=== PATIENT | male | born 1995 | race Asian ===

== ENCOUNTER 2023-11-26 15:46 | Inpatient (IN) ==
[2023-11-26] MEDS: SODIUM CHLORIDE 0.9% 1,000 ML IV ONE ×2 (16:21→17:54)
[2023-11-26] MEDS: ONDANSETRON INJ 2 MG/ML 2 ML VIAL IV STA (16:22)
[2023-11-26 16:38] LABS: Appearance Urine Clear (Clear); Bacteria Urine Automated None Seen (None Seen); Bilirubin Urine Negative (Negative); Blood Urine Trace (Negative); Color Urine Yellow; Epithelial Cell Urine Auto 0-2 /hpf (0-2); Glucose Urine UA 3+ (Negative); Ketones Urine 4+ (Negative); Leukocyte Esterase Urine Negative (Negative); Nitrite Urine Negative (Negative); Protein Urine 3+ (Negative); RBC Urine Automated 0-2 /hpf (0-2); Specific Gravity Urine 1.041 (1.000-1.030); Urobilinogen Urine Negative (Negative); WBC Urine Automated 0-5 /hpf (0-5); pH Urine 5.5 (4.5-7.5)
[2023-11-26 16:50] LABS: Mean Platelet Volume 9.8 fL (9.4-12.4); Platelet Count 357 K/uL (130-400); White Blood Count 22.55 K/ul (4.8-10.8)
[2023-11-26 17:21] LABS: Adenovirus PCR Not Detected (NotDetected); Bordetella parapertussis PCR Not Detected (NotDetected); Bordetella pertussis PCR Not Detected (NotDetected); Chlamydia pneumoniae PCR Not Detected (NotDetected); Coronavirus 229E PCR Not Detected (NotDetected); Coronavirus CoV-2 (COVID19)PCR Not Detected (NotDetected); Coronavirus HKU1 PCR Not Detected (NotDetected); Coronavirus NL63 PCR Not Detected (NotDetected); Coronavirus OC43PCR Not Detected (NotDetected); Human Metapneumovirus PCR Not Detected (NotDetected); Influenza A PCR Not Detected (NotDetected); Influenza B PCR Not Detected (NotDetected); Mycoplasma pneumoniae PCR Not Detected (NotDetected); Parainfluenza Virus 1 PCR Not Detected (NotDetected); Parainfluenza Virus 2 PCR Not Detected (NotDetected); Parainfluenza Virus 3 PCR Not Detected (NotDetected); Parainfluenza Virus 4 PCR Not Detected (NotDetected); Respiratory Syncytial VirusPCR Not Detected (NotDetected); Rhinovirus/Enterovirus PCR Not Detected (NotDetected)
[2023-11-26 18:04] LABS: Basophils # (auto) 0.06 K/uL (0.00-0.20); Basophils % (auto) 0.3 %; Hemoglobin 16.6 g/dl (14.0-18.0); Immature Granulocytes # (auto) 0.11 K/uL (0.01-0.20); Immature Granulocytes % (auto) 0.5 %; Lymphocytes # (auto) 1.51 K/uL (1.20-3.40); Lymphocytes % (auto) 6.7 %; Mean Corpuscular Hemoglobin 30.1 pg (25.0-34.0); Mean Corpuscular Hgb Conc 36.1 g/dL (32.0-36.0); Mean Corpuscular Volume 83.5 fL (80.0-100.0); Monocytes # (auto) 0.63 K/uL (0.11-0.59); Monocytes % (auto) 2.8 %; Neutrophils # (auto) 20.24 K/uL (1.40-6.50); Neutrophils % (auto) 89.7 %; Polychromasia 1+; RDW Coefficient of Variation 11.8 % (11.5-14.5); RDW Standard Deviation 34.9 fL (36.4-46.3); Red Blood Count 5.87 M/uL (4.70-6.10); Spherocytes 1+; Tear Drop Cells 1+
[2023-11-26] MEDS: PANTOprazole 40 MG in SYRINGE 0 ML IV ONE (18:06)
[2023-11-26 18:25] LABS: Albumin Level 4.9 gm/dl (3.4-5.0); Anion Gap 18 (3-11); Bilirubin,Total 0.7 mg/dl (0.2-1.0); Calcium 10.1 mg/dl (8.6-10.3); Carbon Dioxide 19 mmol/L (21-32); Chloride 101 mmol/L (98-107); Magnesium 1.7 mg/dl (1.7-2.4); Potassium 4.6 mmol/L (3.5-5.1); Sodium 138 mmol/L (136-145)
[2023-11-26 18:31] LABS: BUN Creatinine Ratio 13.3 (10-20); Blood Urea Nitrogen 8 mg/dl (6-23); Creatinine Clr Calc Pharmacy 205.2 ml/min; Est GFR (African American) > 150.0 ml/min; Est GFR (Non-African American) 135.9 ml/min; Glucose 257 mg/dl (70-99(Fasting))
[2023-11-26 18:33] LABS: Prothrombin Time 10.8 Seconds (9.0-12.0)
[2023-11-26 18:50] LABS: Alanine Aminotransferase 42 U/L (7-52); Albumin Globulin Ratio 1.4 (0.9-2); Alkaline Phosphatase 86 U/L (34-104); Aspartate Aminotransferase 27 U/L (13-39); Globulin 3.5 gm/dl (2.5-4.0); Lipase 1917 U/L (11-82); Total Protein 8.4 gm/dl (6.0-8.3)
[2023-11-26] MEDS: OPTIRAY 320 100ml IV ONE (18:53)
--- NOTE | 2023-11-26 18:56 | Emergency Department Note ---
Impression & Plan Abdominal pain, acute, epigastric, Acute pancreatitis, Elevated lipase, Elevated lactic acid level, Leukocytosis ED Provider Note HISTORY OF PRESENT ILLNESS: Patient is a 28-year-old male presenting with epigastric abdominal pain and vomiting. Patient reports that pain started earlier today. He locates the pain to the epigastric region and denies any radiation of the pain. He describes it as a constant, sharp pain. Reports nausea and a few episodes of vomiting throughout the day today. He denies any diarrhea. He has not taken anything for the pain prior to arrival in the emergency department. Denies any fevers. Denies any chest pain or shortness of breath. He denies any history of abdominal surgeries. He denies using any ibuprofen over the last few weeks. Denies any excessive alcohol use. He says that he does not drink alcohol. ROS: as above PHYSICAL EXAM: Constitutional: Patient appears in no acute distress. HENT: Head: Normocephalic and atraumatic. Eyes: EOMI, PERRL Mouth/Throat: Mucous membranes moist. Neck: Trachea midline. Neck supple. Cardiovascular: Tachycardic with regular rhythm. No murmurs, rubs or gallops. Intact distal pulses. Pulmonary/Chest: No respiratory distress. Breath sounds clear and equal bilaterally. No wheezes or rales. Abdominal: Abdomen soft, no rebound or guarding. Epigastric TTP Musculoskeletal: No edema, tenderness or deformity noted. Skin: Warm and dry. No rash, erythema, pallor or cyanosis Psychiatric: Appropriate mood and affect for situation. Neurological: Alert and keenly responsive. CN II-XII grossly intact, moving all extremities equally and fully. MDM: - Vitals signs showed hypertension and tachycardia. - History obtained via patient. History as above. - Chronic conditions affecting care: None - Differential diagnoses include, but are not limited to: ACS; gastritis; pancreatitis; cholecystitis; dehydration; small bowel obstruction; bowel perforation - Order placed for continuous cardiac monitoring. At this time, monitor showed rate of 120 bpm with normal sinus rhythm, per my interpretation. - External medical records reviewed. - EKG interpreted by myself showed normal sinus rhythm. Rate 93 bpm. QT 320. No acute ischemic changes. - Laboratory workup interpreted by myself showed leukocytosis (WBC 22.55) with left shift; normal PT/INR; elevated lactate (3.5); normal electrolytes; elevated anion gap (18); hyperglycemia (glucose 257); normal liver function; normal total bilirubin; elevated lipase (1917) - UA negative for infection. Noted to have significant ketonuria and glucosuria. - CT abdomen/pelvis with IV contrast showed acute interstitial pancreatitis. Moderate fat stranding and edema around the entirety of the pancreas. No evidence of necrosis. - Patient given 2L NS, 40 mg IV pantoprazole and 4 mg IV zofran in ER. Given 1g IV tylenol for pain control. - Patient noted to have elevated lactic acid and significant leukocytosis. Though this may be in the setting of dehydration with his nausea and vomiting, will empirically give IV zosyn for infection coverage. - Discussion was had with case finisher about patient's case and need for admission - Hospitalist, Dr. Nuñez, consulted for admission [facility]. I have personally spent 37 minutes of critical care time in the direct management of this patient. This includes bedside care, interpretation of diagnostic studies, and testing, discussion with consultants, patient, and family members, and other required patient management activities. This 37 minutes is in excess of all separately billable procedures. ASSESSMENT AND PLAN: Diagnosis: acute epigastric abdominal pain; acute pancreatitis; elevated lipase; elevated lactic acid level; leukocytosis Plan: admit Past Med/Surg History Problem List (Updated 11/26/23 @ 20:45 by Clara Hernandez MD) Leukocytosis (Acute) Elevated lactic acid level (Acute) Elevated lipase (Acute) Acute pancreatitis (Acute) Abdominal pain, acute, epigastric (Acute) Social History Smoking Status: Never smoker Feels Safe at Home: Yes Results & Data (ED) Vital Signs Vital Signs - 24 hr 11/26/23 16:06 11/26/23 17:20 11/26/23 17:30 Temperature 36.8 C Temperature Source Oral Pulse Rate 98 H 96 H 100 H Pulse Rate from SpO2 Sensor 102 H Respiratory Rate 16 24 Respiratory Depth Normal Blood Pressure 163/129 H 174/112 H Blood Pressure Mean 140 132 Pulse Oximetry 97 95 Oxygen Delivery Method Room Air Room Air Sepsis Recent Fever Within 48 Hours No Sepsis New/Unexplained Change in Mental Status No Sepsis Action Taken by Nursing No Action Required 11/26/23 18:30 11/26/23 18:36 11/26/23 19:42 Temperature Temperature Source Pulse Rate 111 H 107 H 115 H Pulse Rate from SpO2 Sensor 110 H 108 H 120 H Respiratory Rate 18 22 22 Respiratory Depth Blood Pressure 177/113 H 177/113 H 171/121 H Blood Pressure Mean 134 134 137 Pulse Oximetry 100 100 97 Oxygen Delivery Method Room Air Room Air Room Air Sepsis Recent Fever Within 48 Hours Sepsis New/Unexplained Change in Mental Status Sepsis Action Taken by Nursing 11/26/23 20:03 11/26/23 20:33 Temperature Temperature Source Pulse Rate 119 H 120 H Pulse Rate from SpO2 Sensor 115 H 122 H Respiratory Rate 18 20 Respiratory Depth Blood Pressure 170/117 H 170/123 H Blood Pressure Mean 134 138 Pulse Oximetry 97 96 Oxygen Delivery Method Room Air Room Air Sepsis Recent Fever Within 48 Hours Sepsis New/Unexplained Change in Mental Status Sepsis Action Taken by Nursing Laboratory Data 11/26/23 16:17 11/26/23 17:38 Lab Results 11/26/23 11/26/23 11/26/23 Range/Units 16:17 17:38 19:15 WBC 22.55 H (4.8-10.8) K/ul RBC 5.87 (4.70-6.10) M/uL Hgb 16.6 (14.0-18.0) g/dl Hct 49.0 (42.0-52.0) % MCV 83.5 (80.0-100.0) fL MCH 30.1 (25.0-34.0) pg MCHC 36.1 H (32.0-36.0) g/dL RDW Std Deviation 34.9 L (36.4-46.3) fL RDW Coeff of Christian 11.8 (11.5-14.5) % Plt Count 357 (130-400) K/uL MPV 9.8 (9.4-12.4) fL Immature Gran % (Auto) 0.5 % Neut % (Auto) 89.7 % Lymph % (Auto) 6.7 % [place] % (Auto) 2.8 % Eos % (Auto) 0.0 % Baso % (Auto) 0.3 % Neut # (Auto) 20.24 H (1.40-6.50) K/uL Lymph # (Auto) 1.51 (1.20-3.40) K/uL [place] # (Auto) 0.63 H (0.11-0.59) K/uL Eos # (Auto) 0.00 (0.00-0.50) K/uL Baso # (Auto) 0.06 (0.00-0.20) K/uL Immature Gran # (Auto) 0.11 (0.01-0.20) K/uL Polychromasia 1+ Spherocytes 1+ Tear Drop Cells 1+ PT Cancelled 10.8 INR Cancelled 1.0 Sodium Cancelled 138 Potassium Cancelled 4.6 Chloride Cancelled 101 Carbon Dioxide Cancelled 19 L Anion Gap Cancelled 18 H BUN Cancelled 8 Creatinine Cancelled 0.60 Est Cr Clr Drug Dosing Cancelled 205.2 Est GFR ( Amer) Cancelled > 150.0 Est GFR (Non-Af Amer) Cancelled 135.9 BUN/Creatinine Ratio Cancelled 13.3 Glucose Cancelled 257 H Lactate 3.5 H* 2.4 H* (0.4-2.0) mmol/L Calcium Cancelled 10.1 Magnesium Cancelled 1.7 Total Bilirubin Cancelled 0.7 AST Cancelled 27 ALT Cancelled 42 Alkaline Phosphatase Cancelled 86 Troponin I High Sens 4.3 (0-20) pg/ml Total Protein Cancelled 8.4 H Albumin Cancelled 4.9 Globulin Cancelled 3.5 Albumin/Globulin Ratio Cancelled 1.4 Lipase Cancelled 1917 H Urine Color Yellow Urine Appearance Clear (Clear) Urine pH 5.5 (4.5-7.5) Ur Specific [place] 1.041 H (1.000-1.030) Urine Protein 3+ H (Negative) Urine Glucose (UA) 3+ H (Negative) Urine Ketones 4+ H (Negative) Urine Blood Trace H (Negative) Urine Nitrite Negative (Negative) Urine Bilirubin Negative (Negative) Urine Urobilinogen Negative (Negative) Ur Leukocyte Esterase Negative (Negative) Urine WBC (Auto) 0-5 (0-5) /hpf Urine RBC (Auto) 0-2 (0-2) /hpf U Hyaline Cast (Auto) 3-5 H (0-2) /lpf U Epithel Cells (Auto) 0-2 (0-2) /hpf Urine Bacteria (Auto) None Seen (None Seen) Adenovirus (PCR) Not Detected (NotDetected) B. pertussis DNA (PCR) Not Detected (NotDetected) B.parapertussis DNA PCR Not Detected (NotDetected) C. pneumoniae DNA (PCR) Not Detected (NotDetected) Coronavirus OC43 (PCR) Not Detected (NotDetected) Coronavirus HKU1 (PCR) Not Detected (NotDetected) Coronavirus 229E (PCR) Not Detected (NotDetected) SARS-CoV-2 (PCR) Not Detected (NotDetected) Coronavirus NL63 (PCR) Not Detected (NotDetected) Human Metapneumovir PCR Not Detected (NotDetected) Influenza Type A (PCR) Not Detected (NotDetected) Influenza Type B (PCR) Not Detected (NotDetected) M. pneumoniae (PCR) Not Detected (NotDetected) Parainfluenza 1 (PCR) Not Detected (NotDetected) Parainfluenza 2 (PCR) Not Detected (NotDetected) Parainfluenza 3 (PCR) Not Detected (NotDetected) Parainfluenza 4 (PCR) Not Detected (NotDetected) RSV (PCR) Not Detected (NotDetected) Entero/Rhino (PCR) Not Detected (NotDetected) Administered Medications Discontinued Medications Sodium Chloride (Nss) 1,000 mls @ 999 mls/hr IV .Q1H1M ONE Stop: 11/26/23 17:17 Last Infusion: 11/26/23 17:23 Dose: Infused Documented By: [facility] Admin: 11/26/23 16:21 Dose: 999 mls/hr Documented By: LCD Pantoprazole Sodium 40 mg/ (Syringe) 10 mls @ 5 mls/min IV NOW ONE Stop: 11/26/23 16:18 Last Admin: 11/26/23 18:06 Dose: 5 mls/min Documented By: SW Sodium Chloride (Nss) 1,000 mls @ 999 mls/hr IV .Q1H1M ONE Stop: 11/26/23 18:07 Last Infusion: 11/26/23 19:27 Dose: Infused Documented By: [facility] Admin: 11/26/23 17:54 Dose: 999 mls/hr Documented By: [facility] Acetaminophen (Ofirmev) 1,000 mg in 100 mls @ 400 mls/hr IV NOW STA Stop: 11/26/23 19:41 Last Infusion: 11/26/23 20:26 Dose: Infused Documented By: Admin: 11/26/23 19:42 Dose: 400 mls/hr Documented By: CADEN Ioversol (Optiray 320 100ml) 91 ml IV ONCE ONE Stop: 11/26/23 18:54 Last Admin: 11/26/23 18:53 Dose: 91 ml Documented By: MEENA Ondansetron HCl (Ondansetron Inj 2 Mg/Ml 2 Ml Vial) 4 mg IV NOW STA Stop: 11/26/23 16:18 Last Admin: 11/26/23 16:22 Dose: 4 mg Documented By: RUSTY Imaging Data Radiologist's Impression: Abdomen/Pelvis CT 11/26/23 16:09 Exam(s): CT ABDOMEN + PELVIS With Contrast IV Amt: 91 ml optiray 320 EXAM: CT Abdomen and Pelvis With Intravenous Contrast CLINICAL HISTORY: Reason for exam: abdominal pain. TECHNIQUE: Axial computed tomography images of the abdomen and pelvis with intravenous contrast. CTDI is might make a sandwich later in the shift 25.77 mGy and DLP is 1329.43 mGy-cm. Automated exposure control was utilized for the study. A dose lowering technique was utilized adhering to the principles of ALARA. CONTRAST: Patient received 91 ml optiray 320 of IV contrast COMPARISON: No relevant prior studies available. FINDINGS: ABDOMEN: Liver: Liver measures 22 cm with diffuse steatosis. Gallbladder and bile ducts: No biliary dilatation. Normal gallbladder. No radiopaque stones. Pancreas: Acute interstitial pancreatitis. Moderate fat stranding and edema around the entirety of the pancreas. No CT evidence of necrosis. Spleen: Unremarkable. Adrenals: Unremarkable. Kidneys and ureters: Unremarkable. No obstructing stones. No hydronephrosis. Stomach and bowel: Unremarkable. PELVIS: Appendix: No findings to suggest acute appendicitis. Bladder: Unremarkable. Reproductive: Unremarkable as visualized. ABDOMEN and PELVIS: Intraperitoneal space: Unremarkable. No free air. No significant fluid collection. Bones/joints: No acute fracture. Soft tissues: Unremarkable. Vasculature: Unremarkable. Lymph nodes: Unremarkable. IMPRESSION: 1. Acute interstitial pancreatitis. Moderate fat stranding and edema around the entirety of the pancreas. No CT evidence of necrosis. 2. Hepatomegaly and hepatic steatosis. Electronically signed by: Hemal Sears MD 11/26/23 20:28 PM Discharge Plan Visit Data Chief Complaint: Vomiting Stated Complaint: ABD PAIN, VOMITING ED Provider: Clara Hernandez Discharge Problem: Abdominal pain, acute, epigastric, Acute pancreatitis, Elevated lipase, Elevated lactic acid level, Leukocytosis Forms Stand Alone Forms: My [facility] Referrals Referrals: PCP,NO [Primary Care Provider] -
[2023-11-26] MEDS: ACETAMINOPHEN 1,000 MG/100 ML VIAL IV STA (19:42)
--- NOTE | 2023-11-26 20:28 | CT Scan Report ---
Exam(s): CT ABDOMEN + PELVIS With Contrast IV Amt: 91 ml optiray 320 EXAM: CT Abdomen and Pelvis With Intravenous Contrast CLINICAL HISTORY: Reason for exam: abdominal pain. TECHNIQUE: Axial computed tomography images of the abdomen and pelvis with intravenous contrast. CTDI is might make a sandwich later in the shift 25.77 mGy and DLP is 1329.43 mGy-cm. Automated exposure control was utilized for the study. A dose lowering technique was utilized adhering to the principles of ALARA. CONTRAST: Patient received 91 ml optiray 320 of IV contrast COMPARISON: No relevant prior studies available. FINDINGS: ABDOMEN: Liver: Liver measures 22 cm with diffuse steatosis. Gallbladder and bile ducts: No biliary dilatation. Normal gallbladder. No radiopaque stones. Pancreas: Acute interstitial pancreatitis. Moderate fat stranding and edema around the entirety of the pancreas. No CT evidence of necrosis. Spleen: Unremarkable. Adrenals: Unremarkable. Kidneys and ureters: Unremarkable. No obstructing stones. No hydronephrosis. Stomach and bowel: Unremarkable. PELVIS: Appendix: No findings to suggest acute appendicitis. Bladder: Unremarkable. Reproductive: Unremarkable as visualized. ABDOMEN and PELVIS: Intraperitoneal space: Unremarkable. No free air. No significant fluid collection. Bones/joints: No acute fracture. Soft tissues: Unremarkable. Vasculature: Unremarkable. Lymph nodes: Unremarkable. IMPRESSION: 1. Acute interstitial pancreatitis. Moderate fat stranding and edema around the entirety of the pancreas. No CT evidence of necrosis. 2. Hepatomegaly and hepatic steatosis. Electronically signed by: Hemal Sears MD 11/26/23 20:28 PM
[2023-11-26] MEDS ORDERED: STAT IV Infusion **Titration per Protocol STA (21:06)
[2023-11-26] MEDS ORDERED: PHARMACY GLYCEMIC MGMT CONSULT PRN (21:06)
[2023-11-26] MEDS ORDERED: PLASMA-LYTE A 1,000 ML IV SCH (21:15)
[2023-11-26 21:16] LABS: Estimated Average Glucose 283 mg/dl; Hemoglobin A1C 11.5 % (4.5-5.6)
--- NOTE | 2023-11-26 21:22 | History & Physical Report ---
Date of Service November 26, 2023 Assessment & Plan (1) DKA (diabetic ketoacidosis): Plan: Admit to the PCU on telemetry and pulse oximetry Currently hypotensive with systolics in the 170s, and sinus tachycardia with heart rate in the 120s but otherwise stable Presented ED with acute onset of epigastric/right upper quadrant abdominal pain, nausea, and nonbloody emesis this morning Noted to be hyperglycemic with glucose of 257 on arrival, anion gap 18, bicarb of 19, lactate of 3.5, with 4+ ketones and 3+ glucose in his urine No previous diagnosis of diabetes, but hemoglobin A1c ordered at time of admission is 11.5 Status post 2 L normal saline in the ED We will start DKA protocol with insulin drip, LR at 150 mL/h, additional pending IV fluids have been ordered when BSG improves Potassium stable at 4.6 Monitor every 4 hours VBG, BMP, mag, Phos Bilateral SCDs DVT prophylaxis N.p.o. with sips and chips (2) Acute pancreatitis: Plan: CT abdomen pelvis with IV contrast notes acute interstitial pancreatitis with moderate fat stranding and edema around the entirety of the pancreas, no CT evidence of necrosis. Triglyceride level, lipid panel, medical alcohol level, and urine drug screen ordered at time of admission are in process Continue IV fluids until he can tolerate p.o. intake Pain control with IV morphine for now Gastroenterology consult placed (3) Leukocytosis: Plan: Patient noted to have a leukocytosis of 22 with left shift of 29 No signs of infection on CT of the abdomen pelvis or UA Will obtain chest x-ray and blood cultures for further evaluation Likely due to significant dehydration from DKA and acute pancreatitis Status post 1 dose of Zosyn in the ED, will hold additional antibiotics at this time Follow infectious workup Plan The patient was discussed with Dr. Nuñez at the time of admission History of Present Illness Chief Complaint: Abdominal pain, nausea, vomiting Primary Care Provider: NO PCP Max Is a 19-year-old male with no significant past medical history who presented to [facility] ED on 11/26/2023 due to acute onset of epigastric/right upper quadrant abdominal pain, nausea, and vomiting which began this morning. On arrival to the ED he was noted to be hypertensive with systolic blood pressure in the 170s, tachycardic at 98, but otherwise stable. Labs were significant for a leukocytosis of 22 with neutrophil predominance of 20, anion gap of 18 with bicarb of 19, glucose of 257, initial lactate of 3.5, lipase of 1917, UA with specific gravity 1.041, 3+ protein, 3+ glucose, 4+ ketones, trace blood, and 3-5 hyaline casts, with full respiratory BioFire negative. CT abdomen pelvis with IV contrast was read as acute interstitial pancreatitis. Moderate fat stranding and edema around the entirety of the pancreas. No CT evidence of necrosis. Hepatomegaly and hepatic steatosis. Prior to admission the patient was given 1 g IV acetaminophen, 2 L NSS, a dose of Zosyn, 40 mg IV pantoprazole, and 4 mg IV Zofran. Patient was lying in bed at time of exam and appears to be in mild distress due to pain. He states that he had been in his normal state of health when he went to bed last night but woke up this a.m. with his abdominal pain. States that the abdominal pain is mainly been in the epigastric and right upper quadrant regions, sharp/stabbing in nature, and a 10 out of 10 at its worst. Denies any recent radiation of his pain. Has had multiple episodes of nausea and nonbloody emesis, but denies recent diarrhea or bloody bowel movements. He denies recent alcohol use, tobacco use, recreational drug use, denies previous history of diabetes, previous diagnosis of percutaneous, [id number] medications/supplements. When asked, he states that he has had a pain similar to this but much less severe 2 times in the past but they were never this bad to require ED evaluation. He is a full code Please refer to Dr. Nuñez's attestation for any changes to the treatment plan Allergies Allergy/AdvReac Type Severity Reaction Status Date / Time No Known Allergies Allergy Unverified 11/26/23 20:47 Home Medications Medication Instructions Recorded Confirmed Type No Known Home Medications 11/26/23 11/26/23 History Past Med/Surg History Problem List (Updated 11/26/23 @ 21:39 by Sukhi Tse PA-C) DKA (diabetic ketoacidosis) Leukocytosis (Acute) Elevated lactic acid level (Acute) Elevated lipase (Acute) Acute pancreatitis (Acute) Abdominal pain, acute, epigastric (Acute) Social History Smoking Status: Never smoker Second Hand Exposure: No; Do You Dip or Chew Tobacco: No; Tobacco Cessation Education Requested by Patient: No Hx Alcohol Use: No Hx Substance Use: No Preferred Language: Mandarin Lao Communication Ability: Effective 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 Beliefs That Will Affect Care: None Current Living Situation: Other Current Living Situation Comment: lives in apartment Other Information That Helps Us Care for You: No Feels Safe at Home: Yes Safety Concerns: Feels Safe At This Time Assistive Devices: None Physical Exam Physical Exam: Physical Exam: General: In mild distress due to pain, stated age, ill-appearing but non-t oxic HEENT: Normocephalic, atraumatic, no scleral icterus, pupils around round, symmetrical, and reactive to light, dry mucus membranes, trachea midline, no thyromegaly Chest/Pulm: No respiratory distress, symmetrical chest expansion, clear breath sounds throughout Cardiac: tachycardic rate, regular rhythm, no murmurs noted Abdomen: Negative for ascites and bruising, hypoactive bowel sounds, soft, tender to percussion in the epigastric and RUQ regions, tender to palpation in the RUQ and epigastric region without rebound tenderness Musculoskeletal: Symmetrical and without signs of acute trauma, upper and lower extremities with full ROM, no atrophy, spasticity, or flaccidity Extremities: Radial, dorsalis pedis, and posterior tibial pulses are intact and symmetrical, no edema noted in the BL LE's Skin: Warm, dry, no rashes , lesions, or scars noted Neuro: Alert and oriented to person, place, month, year, and president, no focal defects, no tremors noted Psych: No acute distress, calm and cooperative during the exam Results & Data Results & Data Vital Signs (Past 12 Hours) Vital Signs Temp Pulse Resp BP Pulse Ox O2 Del Method 11/26/23 20:33 120 H 20 170/123 H 96 Room Air 11/26/23 20:03 119 H 18 170/117 H 97 Room Air 11/26/23 19:42 115 H 22 171/121 H 97 Room Air 11/26/23 18:36 107 H 22 177/113 H 100 Room Air 11/26/23 18:30 111 H 18 177/113 H 100 Room Air 11/26/23 17:30 100 H 24 174/112 H 95 Room Air 11/26/23 17:20 96 H 11/26/23 16:06 36.8 C 98 H 16 163/129 H 97 Room Air Laboratory Results Abnormal lab results 11/26/23 11/26/23 11/26/23 Range/Units 16:17 17:38 19:15 WBC 22.55 H (4.8-10.8) K/ul MCHC 36.1 H (32.0-36.0) g/dL RDW Std Deviation 34.9 L (36.4-46.3) fL Neut # (Auto) 20.24 H (1.40-6.50) K/uL Whitley # (Auto) 0.63 H (0.11-0.59) K/uL Carbon Dioxide 19 L (21-32) mmol/L Anion Gap 18 H (3-11) Glucose 257 H (70-99(Fasting)) mg/dl POC Glucose (70-99) mg/dl Hemoglobin A1c (4.5-5.6) % Lactate 3.5 H* 2.4 H* (0.4-2.0) mmol/L Total Protein 8.4 H (6.0-8.3) gm/dl Lipase 1917 H (11-82) U/L Ur Specific Arverne 1.041 H (1.000-1.030) Urine Protein 3+ H (Negative) Urine Glucose (UA) 3+ H (Negative) Urine Ketones 4+ H (Negative) Urine Blood Trace H (Negative) U Hyaline Cast (Auto) 3-5 H (0-2) /lpf 11/26/23 11/26/23 Range/Units 21:00 21:24 WBC (4.8-10.8) K/ul MCHC (32.0-36.0) g/dL RDW Std Deviation (36.4-46.3) fL Neut # (Auto) (1.40-6.50) K/uL Whitley # (Auto) (0.11-0.59) K/uL Carbon Dioxide (21-32) mmol/L Anion Gap (3-11) Glucose (70-99(Fasting)) mg/dl POC Glucose 263 H (70-99) mg/dl Hemoglobin A1c 11.5 H (4.5-5.6) % Lactate (0.4-2.0) mmol/L Total Protein (6.0-8.3) gm/dl Lipase (11-82) U/L Ur Specific Arverne (1.000-1.030) Urine Protein (Negative) Urine Glucose (UA) (Negative) Urine Ketones (Negative) Urine Blood (Negative) U Hyaline Cast (Auto) (0-2) /lpf Diagnostic Findings Abdomen/Pelvis CT 11/26/23 16:09 Exam(s): CT ABDOMEN + PELVIS With Contrast IV Amt: 91 ml optiray 320 EXAM: CT Abdomen and Pelvis With Intravenous Contrast CLINICAL HISTORY: Reason for exam: abdominal pain. TECHNIQUE: Axial computed tomography images of the abdomen and pelvis with intravenous contrast. CTDI is might make a sandwich later in the shift 25.77 mGy and DLP is 1329.43 mGy-cm. Automated exposure control was utilized for the study. A dose lowering technique was utilized adhering to the principles of ALARA. CONTRAST: Patient received 91 ml optiray 320 of IV contrast COMPARISON: No relevant prior studies available. FINDINGS: ABDOMEN: Liver: Liver measures 22 cm with diffuse steatosis. Gallbladder and bile ducts: No biliary dilatation. Normal gallbladder. No radiopaque stones. Pancreas: Acute interstitial pancreatitis. Moderate fat stranding and edema around the entirety of the pancreas. No CT evidence of necrosis. Spleen: Unremarkable. Adrenals: Unremarkable. Kidneys and ureters: Unremarkable. No obstructing stones. No hydronephrosis. Stomach and bowel: Unremarkable. PELVIS: Appendix: No findings to suggest acute appendicitis. Bladder: Unremarkable. Reproductive: Unremarkable as visualized. ABDOMEN and PELVIS: Intraperitoneal space: Unremarkable. No free air. No significant fluid collection. Bones/joints: No acute fracture. Soft tissues: Unremarkable. Vasculature: Unremarkable. Lymph nodes: Unremarkable. IMPRESSION: 1. Acute interstitial pancreatitis. Moderate fat stranding and edema around the entirety of the pancreas. No CT evidence of necrosis. 2. Hepatomegaly and hepatic steatosis. Electronically signed by: Hemal Sears MD 11/26/23 20:28 PM ECG Additional Comments: Normal sinus rhythm Nonspecific ST and T wave abnormality Abnormal ECG No previous ECGs available Code Status & VTE Plan Code Status Full code VTE Prophylaxis Plan VTE Prophylaxis will be ordered: Yes Supervising Physician Co-Signing Physician Notes Attending addendum: I have physically seen this patient, have supervised the HANG's activities, and agree with the H&P unless as otherwise noted. Assessment and Plan: DKA- Anion gap 18 Glucose 257 on admission Hemoglobin A1c 11.5, indicating new onset diabetes mellitus Placed on insulin drip DKA protocol Diabetic education Acute interstitial pancreatitis- Lipase 1917 follow serially NPO Check serum triglycerides/fasting lipid panel Check alcohol level and urine drug screen Hepatomegaly/hepatic steatosis- Normal LFTs Likely secondary to metabolic syndrome Manage diabetes, fasting lipid panel, and obesity PG Care Time/CCT Total # of Minutes Spent Total Time Spent with Patient: Total time spent is greater than 50% in coordination of care (as documented) at patient's floor/unit and/or counseling patient: [place] [address] INT INP/OBS CARE 3/75MIN Patient Type New Medical Decision Making High Complexity Diagnoses DKA (diabetic ketoacidosis) E11.10 Acute pancreatitis K85.90 Leukocytosis D72.829
[2023-11-26] MEDS ORDERED: ONDANSETRON INJ 2 MG/ML 2 ML VIAL IV PRN (21:23)
[2023-11-26] MEDS ORDERED: PENDING 1/2NSS+20mEq KCL IVF SCH (21:30)
[2023-11-26] MEDS: INSULIN REGULAR 250 UNITS in SODIUM CHLORIDE 0.9% 247.5 ML IV SCH (21:44)
[2023-11-26] MEDS ORDERED: GLUCAGON FOR INJ 1 MG VIAL IM PRN (21:45)
[2023-11-26] MEDS ORDERED: CARBOHYDRATES FOR HYPOGLYCEMIA PO PRN (21:45)
[2023-11-26] MEDS ORDERED: GLUCOSE 40% GEL 15 GM TUBE PO PRN (21:45)
[2023-11-26] MEDS ORDERED: GLUCOSE 10 TAB/TUBE PO PRN (21:45)
[2023-11-26] MEDS ORDERED: DEXTROSE 50% 50 ML SYRINGE IV PRN (21:45)
[2023-11-26] MEDS: SODIUM CHLOR 0.45% + 20MEQ KCL 20 MEQ/1,000 ML BAG IV SCH (22:36)
[2023-11-26] MEDS: MoRPHine SULFATE 2 MG/ML CARP IV PRN (22:42)
[2023-11-26] MEDS: LACTATED RINGER'S 1,000 ML IV ONE (23:11)
[2023-11-26 23:38] LABS: HCO3 VBG 20 mmol/L; Oxygen Saturation VBG 71.6 %; PCO2 VBG 38 mmHg (38-50); PO2 VBG 40 mmHg; pH VBG 7.32 (7.36-7.41)
[2023-11-26] MEDS: PIPERACILLIN/TAZOBACTAM 4.5 GM/100 ML BAG IV ONE (23:44)
[2023-11-27 00:23] LABS: BUN Creatinine Ratio 11.9 (10-20); Blood Urea Nitrogen 7 mg/dl (6-23); Carbon Dioxide 18 mmol/L (21-32); Chloride 102 mmol/L (98-107); Chol HDL Ratio 5.9 (0-5); Cholesterol 183 mg/dl (0-200); Creatinine Clr Calc Pharmacy 205.5 ml/min; Est GFR (African American) > 150.0 ml/min; Est GFR (Non-African American) 136.8 ml/min; Glucose 215 mg/dl (70-99(Fasting)); HDL Cholesterol 31 mg/dl; Triglycerides 886 mg/dl (0-150)
[2023-11-27 00:31] LABS: Anion Gap 16 (3-11); Magnesium 1.6 mg/dl (1.7-2.4); Potassium 3.5 mmol/L (3.5-5.1); Sodium 136 mmol/L (136-145)
[2023-11-27 00:37] LABS: Phosphorus 2.6 mg/dl (2.5-4.9)
[2023-11-27 01:36] LABS: Anion Gap 12 (3-11); Calcium 9.1 mg/dl (8.6-10.3); Carbon Dioxide 21 mmol/L (21-32); Chloride 103 mmol/L (98-107); Magnesium 1.6 mg/dl (1.7-2.4); Potassium 3.4 mmol/L (3.5-5.1); Sodium 136 mmol/L (136-145)
[2023-11-27 01:41] LABS: BUN Creatinine Ratio 10.4 (10-20); Blood Urea Nitrogen 7 mg/dl (6-23); Est GFR (African American) > 150.0 ml/min; Est GFR (Non-African American) 129.8 ml/min; Glucose 203 mg/dl (70-99(Fasting)); Phosphorus 1.9 mg/dl (2.5-4.9)
[2023-11-27] MEDS: D5W AND 1/2NSS + 20MEQ KCL 20 MEQ/1,000 ML BAG IV SCH (02:33)
[2023-11-27] MEDS: PENDING D5 1/2NS+20mEq KCL IVF SCH (06:09)
[2023-11-27 06:27] LABS: Anion Gap 9 (3-11); Carbon Dioxide 21 mmol/L (21-32); Chloride 105 mmol/L (98-107); Magnesium 1.6 mg/dl (1.7-2.4); Potassium 3.3 mmol/L (3.5-5.1); Sodium 135 mmol/L (136-145)
[2023-11-27 06:41] LABS: Blood Urea Nitrogen 9 mg/dl (6-23); Creatinine Clr Calc Pharmacy 202.8 ml/min; Est GFR (African American) > 150.0 ml/min; Est GFR (Non-African American) 135.9 ml/min; Glucose 165 mg/dl (70-99(Fasting)); Phosphorus 1.2 mg/dl (2.5-4.9)
[2023-11-27] MEDS ORDERED: POTASSIUM PHOS 3 MMOL/1 ML INFUSION IV STA ×2 (06:45→18:19)
--- NOTE | 2023-11-27 08:27 | XRay Report ---
SINGLE VIEW CHEST CLINICAL HISTORY: Leukocytosis FINDINGS: An AP, portable, upright chest radiograph is obtained. No prior studies are available for c omparison at the time of dictation. The examination is degraded by portable technique and apical lord otic positioning. The cardiomediastinal silhouette is unremarkable. There is mild bibasilar atelectas is. The lungs and pleural spaces are otherwise clear. No pneumothorax is seen. The bony thorax is brandyn ssly intact. IMPRESSION: No active disease in the chest. ACT 112: Negative or not required by law. Electronically signed by: Jerry Ace M.D. 11/27/2023 8:26 AM
--- NOTE | 2023-11-27 08:29 | Hospitalist Progress Note ---
Date of Service November 27, 2023 Assessment & Plan (1) DKA (diabetic ketoacidosis): (2) Acute pancreatitis: (3) Leukocytosis: Plan Max Kelly is a 28yo male with no significant PMH who presented to ED 11/25 with acute onset of epigastric/RUQ abdominal pain, nausea, and nonbloody emesis and was admitted with DKA and acute pancreatitis. DKA Was hyperglycemic to 257 on arrival, anion gap 18, bicarb of 19, lactate of 3.5, UA with 4+ ketones and 3+ glucose No previous diabetes dx; no medications; A1c at admission is 11.5 Given insulin and 2L n.s. in ED. AG improved to 9, BSG < 200 Continue insulin drip until DKA resolves then bridge to s.c. insulin Continue IVF w K-supplemented 1/2 n.s. Check VBG, BMP, mag, phos q4h NPO with sips and chips until on s.c. insulin Educate on diabetes management and establish plan for outpt followup Acute Pancreatitis CT abd/pelvis w con showed acute interstitial pancreatitis, moderate surrounding fat stranding and edema, no evidence of necrosis Given Protonix and Zofran in ED Triglycerides at admission 2111; repeat 886. Lipase 1917. Blood alc < 10. Continue IV fluids until he can tolerate p.o. intake then transition to clear liquids Pain control with IV morphine for now Gastroenterology consult placed Leukocytosis WBC count 22 with left shift of 29 No signs of infection on CT abd/pelvis or on UA Likely due to significant dehydration from DKA and acute pancreatitis CXR and blood cx pending, follow infectious workup Given 1 dose of Zosyn in the ED Admission and Anticipated Discharge Date Admission Date: November 26, 2023 Supervising Physician Co-Signing Physician Notes Attending attestation Pt seen and examined in concert with Dr. Soares. In agreement with the documented findings as noted in the resident documentation with any exceptions or additions as noted here. Ongoing epigastric abdominal pain which is well controlled on current medication regimen with improving fatigue. On examination, S1/S2 nl RRR no MCG. CTAB. Abd non-distended, epigastric TTP. Diabetic ketoacidosis with new diagnosis of diabetes - transition to subQ insulin by protocol and advance diet to liquid as tolerated re: pancreatitis. Trending labs as noted above. Acute pancreatitis in the setting of hypertriglyceridemia likely 2/2 DKA - IV fluids and pain control Else see resident documentation as noted. Subjective Pt reports feeling much improved today from yesterday morning. He says his epigastric pain began yesterday, somewhat radiated to RUQ, worsened to several episodes of emesis. He has had a few similar episodes in the past year, but none that resulted in vomiting or lasted > 1 day. He doesn't correlate these symptoms with any particular diet or activity. He reports having a grandmother with T2DM and no other significant family history. He denies current n/v or abdominal pain. Pt expessed understanding of his diagnosis and plan. Review of Systems 2 Review of Systems: General: no fevers, chills, fatigue HEENT: no changes in vision or hearing, RAMOS CV: no chest pain, palpitations Resp: no cough, SOB GI: no constipation or diarrhea; + n/v : no dysuria, increased frequency or urgency; + nocturia Endo: no polydipsia Physical Exam 2 Physical Exam: General: well-appearing, NAD, AOx3 HEENT: NCAT CV: RRR, no m/r/g Resp: CTAB GI: soft, mild epigastric tenderness, + BS Results & Data Results & Data Vital Signs (Past 12 Hours) Vital Signs Temp Pulse Pulse Resp BP BP Pulse Ox 11/27/23 14:57 105 H 11/27/23 11:00 36.8 C 105 H 17 131/79 96 11/27/23 08:00 117 H 11/27/23 07:29 37.0 C 117 H 19 137/91 96 11/27/23 03:31 37.4 C 121 H 18 152/105 H 95 11/27/23 00:00 120 H 11/26/23 23:52 11/26/23 22:22 36.8 C 121 H 18 146/108 H 98 11/26/23 21:30 107 H 22 98 11/26/23 20:33 120 H 20 170/123 H 96 11/26/23 20:03 119 H 18 170/117 H 97 11/26/23 19:42 115 H 22 171/121 H 97 11/26/23 18:36 107 H 22 177/113 H 100 11/26/23 18:30 111 H 18 177/113 H 100 11/26/23 17:30 100 H 24 174/112 H 95 11/26/23 17:20 96 H 11/26/23 16:06 36.8 C 98 H 16 163/129 H 97 Intake and Output 11/27/23 11/27/23 11/27/23 06:59 14:59 22:59 Intake Total 767.112 / 2875.259 2519.016 / 2519.016 Output Total 600 / 600 Balance 167.112 / 2275.259 2519.016 / 2519.016 Intake: IV 767.112 / 2875.259 2519.016 / 2519.016 D5w and 1/2Nss + 20Meq KCl 20 2000 / 2000 meq In 1,000 ml @ 150 mls/hr IV .Q6H40M [facility] Rx#:[id number] Insulin Regular 250 units In 75.112 / 83.259 66.516 / 66.516 Sodium Chloride 0.9% 247.5 ml @ 11.3 UNITS/HR 11.3 mls/hr IV . Q22H8M [facility] Rx#:[id number] Magnesium Sulfate / D5w 1 gm In 197.5 / 197.5 100 ml @ 50 mls/hr IV Q2H [facility] Rx#:[id number] Piperacillin/Tazobactam 4.5 gm 100 / 100 In 100 ml @ 200 mls/hr IV NOW ONE Rx#:[id number] Potassium Phosphate 15 mmol In 255 / 255 Sodium Chloride 0.9% 250 ml @ 88 mls/hr IV ONE ONE Rx#: [id number] Sodium Chlor 0.45% + 20Meq KCl 592 / 592 20 meq In 1,000 ml @ 150 mls/hr IV .Q6H40M [facility] Rx#:[id number] Output: Urine 600 / 600 Other: Other Intake Source ice chips Weight 94.7 kg Weight Measurement Method Built in [facility] Results 11/26/23 16:17 11/27/23 05:47 AG 9 Diagnostic Findings Abdomen/Pelvis CT 11/26/23 16:09 Exam(s): CT ABDOMEN + PELVIS With Contrast IV Amt: 91 ml optiray 320 EXAM: CT Abdomen and Pelvis With Intravenous Contrast CLINICAL HISTORY: Reason for exam: abdominal pain. TECHNIQUE: Axial computed tomography images of the abdomen and pelvis with intravenous contrast. CTDI is might make a sandwich later in the shift 25.77 mGy and DLP is 1329.43 mGy-cm. Automated exposure control was utilized for the study. A dose lowering technique was utilized adhering to the principles of ALARA. CONTRAST: Patient received 91 ml optiray 320 of IV contrast COMPARISON: No relevant prior studies available. FINDINGS: ABDOMEN: Liver: Liver measures 22 cm with diffuse steatosis. Gallbladder and bile ducts: No biliary dilatation. Normal gallbladder. No radiopaque stones. Pancreas: Acute interstitial pancreatitis. Moderate fat stranding and edema around the entirety of the pancreas. No CT evidence of necrosis. Spleen: Unremarkable. Adrenals: Unremarkable. Kidneys and ureters: Unremarkable. No obstructing stones. No hydronephrosis. Stomach and bowel: Unremarkable. PELVIS: Appendix: No findings to suggest acute appendicitis. Bladder: Unremarkable. Reproductive: Unremarkable as visualized. ABDOMEN and PELVIS: Intraperitoneal space: Unremarkable. No free air. No significant fluid collection. Bones/joints: No acute fracture. Soft tissues: Unremarkable. Vasculature: Unremarkable. Lymph nodes: Unremarkable. IMPRESSION: 1. Acute interstitial pancreatitis. Moderate fat stranding and edema around the entirety of the pancreas. No CT evidence of necrosis. 2. Hepatomegaly and hepatic steatosis. Electronically signed by: Hemal Sears MD 11/26/23 20:28 PM Chest X-Ray 11/26/23 21:14 SINGLE VIEW CHEST CLINICAL HISTORY: Leukocytosis FINDINGS: An AP, portable, upright chest radiograph is obtained. No prior studies are available for comparison at the time of dictation. The examination is degraded by portable technique and apical lordotic positioning. The cardiomediastinal silhouette is unremarkable. There is mild bibasilar atelectasis. The lungs and pleural spaces are otherwise clear. No pneumothorax is seen. The bony thorax is grossly intact. IMPRESSION: No active disease in the chest. ACT 112: Negative or not required by law. Electronically signed by: Jerry Ace M.D. 11/27/2023 8:26 AM Resident Activity Tracking Resident Involvement: Resident Care Provided Care Provided: Adult [facility]
[2023-11-27] MEDS: POTASSIUM PHOSPHATE 15 MMOL in SODIUM CHLORIDE 0.9% 250 ML IV ONE (08:32)
[2023-11-27] MEDS: INSULIN ASPART PER UNIT CHARGE SC SCH ×2 (09:10→18:01)
[2023-11-27] MEDS: MAGNESIUM SULFATE / D5W 1 GM/100 ML BAG IV SCH (09:21)
--- NOTE | 2023-11-27 09:34 | Gastrointestinal Consultation ---
<Statement entered by Megan Jones MD - 11/28/23 15:52> I have examined the patient, reviewed the History & Physical and in the interval since the performance of the History & Physical I have noted the following changes of clinical significance: no changes noted. I agree with the documentation provided by SETH Haynes with no additional comments. I recommend checking TGs with tomorrows labs to determine whether or not TG therapy is needed or if the elevation on admission was more of a reaction to the acute pancreatitis. Given the unusual circumstance of his pancreatitis, would monitor for ETOH withdrawal and pursue a follow up imaging study (MRCP + MRI abd w contrast vs EUS) in ~4 weeks. Suggest continuing a liquid diet today. Date of Consultation November 27, 2023 Assessment & Plan (1) Acute pancreatitis: Patient is a 28 year old male with first diagnosis of pancreatitis, though has had questionable episodes in the past. He has not followed with a physician regularly in the past. Likely episode was triggered by hypertriglyceridemia. He has been feeling better since admission. - recommend supportive care. - continue with IVF, pain control. he is trying ice chips for now. - He will need to get his triglycerides and blood sugars under control. History of Present Illness Reason for Consultation: acute pancreatitis Requesting Physician: Sukhi Tse PA-C Attending Physician: Sadiq Sampson MD History of Present Illness Patient is a 28 year old male with no significant past medical history who presented to [facility] ED on 11/26/2023 due to acute onset of 6/10 epigastric/right upper quadrant abdominal pain, nausea, and vomiting which began suddenly the morning of 11/26/23. On arrival to the ED he was noted to be hypertensive with systolic blood pressure in the 170s, tachycardic at 98, but otherwise stable. Labs were significant for a leukocytosis of 22, LFTs unremarkable, lipase of 1917. CT abdomen pelvis with IV contrast was read as acute interstitial pancreatitis. Moderate fat stranding and edema around the entirety of the pancreas. No CT evidence of necrosis. Hepatomegaly and hepatic steatosis. He tells me he does not see a physician regularly and is on no medications. He denies any regular ETOH use. he tells me he had a few episodes similar to this in the past that he never had evaluated and he questions if this was pancreatitis but they were short lived episodes. Since admission, he has been feeling better. Pain today rated 4/10. no further nausea/vomiting. rest of GI ros unremarkable. Allergies Allergy/AdvReac Type Severity Reaction Status Date / Time No Known Allergies Allergy Unverified 11/26/23 20:47 Home Medications Medication Instructions Recorded Confirmed Type No Known Home Medications 11/26/23 11/26/23 History Patient History Social History Smoking Status: Never smoker Second Hand Exposure: No; Do You Dip or Chew Tobacco: No; Tobacco Cessation Education Requested by Patient: No Hx Alcohol Use: No Hx Substance Use: No Preferred Language: Mandarin Kiswahili Communication Ability: Effective Public Relations Studies Director Required: No Beliefs That Will Affect Care: None Current Living Situation: Other Current Living Situation Comment: lives in apartment Other Information That Helps Us Care for You: No Feels Safe at Home: Yes Safety Concerns: Feels Safe At This Time Assistive Devices: None Review of Systems Review of Systems: All systems reviewed & are unremarkable except as noted in HPI & below Physical Exam Constitutional: WD/WN, vitals as above Respiratory: normal respiratory effort, lungs clear to auscultation Cardiovascular: RRR, no murmur, no edema Gastrointestinal (Abdomen): mild diffuse tenderness worse over the epigastric region, no guarding, soft, normal bowel sounds. Psychiatric: Orientation: alert and oriented x 3 Affect: euthymic affect Results & Data Vital Signs (Past 12 Hours) Vital Signs Temp Pulse Pulse Resp BP Pulse Ox O2 Del Method 11/27/23 07:29 98.6 F 117 H 19 137/91 96 Room Air 11/27/23 03:31 99.3 F 121 H 18 152/105 H 95 Room Air 11/27/23 00:00 120 H 11/26/23 23:52 Room Air 11/26/23 22:22 98.2 F 121 H 18 146/108 H 98 Room Air Coding Level of Care Code 31856 IN/OBS CONSULT LVL 3,45M Diagnoses Acute pancreatitis K85.90
[2023-11-27 10:14] LABS: Anion Gap 9 (3-11); BUN Creatinine Ratio 15.5 (10-20); Blood Urea Nitrogen 9 mg/dl (6-23); Calcium 8.2 mg/dl (8.6-10.3); Carbon Dioxide 21 mmol/L (21-32); Chloride 103 mmol/L (98-107); Creatinine Clr Calc Pharmacy 209.8 ml/min; Est GFR (African American) > 150.0 ml/min; Est GFR (Non-African American) 137.8 ml/min; Glucose 204 mg/dl (70-99(Fasting)); Magnesium 1.5 mg/dl (1.7-2.4); Phosphorus 1.9 mg/dl (2.5-4.9); Potassium 3.6 mmol/L (3.5-5.1); Sodium 133 mmol/L (136-145)
--- NOTE | 2023-11-27 12:40 | Electrocardiogram Report ---
Test Reason : Blood Pressure : / mmHG Vent. Rate : 093 BPM Atrial Rate : 093 BPM P-R Int : 146 ms QRS Dur : 082 ms QT Int : 320 ms P-R-T Axes : 042 031 009 degrees QTc Int : 397 ms Normal sinus rhythm Nonspecific ST and T wave abnormality Abnormal ECG No previous ECGs available Confirmed by Sadiq Gill ([id number]) on 11/27/2023 12:39:36 PM Referred By: REFERRED SELF Confirmed By:Grey Gill
[2023-11-27] MEDS ORDERED: LANTUS PER UNIT CHARGE SC ONE (13:30)
[2023-11-27 13:38] LABS: Anion Gap 6 (3-11); BUN Creatinine Ratio 12.5 (10-20); Blood Urea Nitrogen 8 mg/dl (6-23); Calcium 8.5 mg/dl (8.6-10.3); Carbon Dioxide 22 mmol/L (21-32); Chloride 104 mmol/L (98-107); Creatinine Clr Calc Pharmacy 190.1 ml/min; Est GFR (African American) > 150.0 ml/min; Est GFR (Non-African American) 132.3 ml/min; Glucose 211 mg/dl (70-99(Fasting)); Magnesium 2.4 mg/dl (1.7-2.4); Potassium 3.7 mmol/L (3.5-5.1); Sodium 132 mmol/L (136-145)
[2023-11-27] MEDS: LANTUS PER UNIT CHARGE SC ONE (14:08)
--- NOTE | 2023-11-27 16:19 | Ultrasound Report ---
ABDOMINAL ULTRASOUND, RIGHT UPPER QUADRANT HISTORY: Acute right upper quadrant abdominal pain r/o gallstones. COMPARISON: CT 11/26/2023 FINDINGS: Pancreas: The pancreas is mostly obscured by bowel gas. Liver: Enlarged measuring 23 cm. Hepatic steatosis without mass or marginal nodularity. Patent portal vein. Gallbladder: Trace perihepatic ascites. Intraluminal echogenic nonmobile foci within the dependent ga llbladder measuring up to 6 mm. No shadowing cholelithiasis. No gallbladder wall thickening. Negative sonographic Rothman sign. CBD: 0.5 cm. Right kidney: No hydronephrosis. IMPRESSION: 1. Hepatomegaly with hepatic steatosis. 2. Trace ascites related to the acute pancreatitis. 3. Subcentimeter tumefactive sludge versus gallbladder polyps. 4. No shadowing cholelithiasis or sonographic evidence of acute cholecystitis. ACT 112: Negative or not required by law. Electronically signed by: Roddy Venegas M.D. 11/27/2023 4:18 PM
[2023-11-27 17:02] LABS: Amphetamines+Metham, Urine Neg (Neg); Barbiturates, Urine Neg (Neg); Benzodiazepine, Urine Neg (Neg); Cocaine, Urine Neg (Neg); Fentanyl, Urine Neg (Neg); MDMA (Ecstacy), Urine Neg (Neg); Marijuana, Urine Neg (Neg); Methadone, Urine Neg (Neg); Opiate, Urine Neg (Neg); Phencyclidine, Urine Neg (Neg)
[2023-11-27 17:43] LABS: Anion Gap 7 (3-11); Calcium 9.1 mg/dl (8.6-10.3); Carbon Dioxide 22 mmol/L (21-32); Chloride 104 mmol/L (98-107); Magnesium 2.3 mg/dl (1.7-2.4); Potassium 3.6 mmol/L (3.5-5.1); Sodium 133 mmol/L (136-145)
[2023-11-27 17:51] LABS: BUN Creatinine Ratio 12.5 (10-20); Blood Urea Nitrogen 7 mg/dl (6-23); Creatinine Clr Calc Pharmacy 217.3 ml/min; Est GFR (African American) > 150.0 ml/min; Est GFR (Non-African American) 139.8 ml/min; Glucose 187 mg/dl (70-99(Fasting)); Phosphorus 1.6 mg/dl (2.5-4.9)
[2023-11-27] MEDS: POTASSIUM PHOSPHATE 21 MMOL in SODIUM CHLORIDE 0.9% 500 ML IV ONE (19:09)
[2023-11-27 23:11] LABS: Base Excess VBG -1.5 mEq/L; HCO3 VBG 24 mmol/L; Oxygen Saturation VBG < 60.0 %; PCO2 VBG 41 mmHg (38-50); PO2 VBG 35 mmHg; pH VBG 7.37 (7.36-7.41)
[2023-11-27 23:48] LABS: Anion Gap 6 (3-11); Calcium 8.5 mg/dl (8.6-10.3); Carbon Dioxide 23 mmol/L (21-32); Chloride 105 mmol/L (98-107); Magnesium 2.2 mg/dl (1.7-2.4); Potassium 3.9 mmol/L (3.5-5.1); Sodium 134 mmol/L (136-145)
[2023-11-27 23:54] LABS: Blood Urea Nitrogen 6 mg/dl (6-23); Creatinine Clr Calc Pharmacy 202.8 ml/min; Est GFR (African American) > 150.0 ml/min; Est GFR (Non-African American) 135.9 ml/min; Glucose 164 mg/dl (70-99(Fasting)); Phosphorus 2.2 mg/dl (2.5-4.9)
[2023-11-28 03:24] LABS: Base Excess VBG -1.1 mEq/L; HCO3 VBG 25 mmol/L; Oxygen Saturation VBG < 60.0 %; PCO2 VBG 45 mmHg (38-50); PO2 VBG 27 mmHg; pH VBG 7.35 (7.36-7.41)
[2023-11-28 03:47] LABS: Anion Gap 6 (3-11); BUN Creatinine Ratio 8.2 (10-20); Blood Urea Nitrogen 5 mg/dl (6-23); Calcium 8.7 mg/dl (8.6-10.3); Carbon Dioxide 23 mmol/L (21-32); Chloride 105 mmol/L (98-107); Creatinine Clr Calc Pharmacy 199.5 ml/min; Est GFR (African American) > 150.0 ml/min; Glucose 128 mg/dl (70-99(Fasting)); Magnesium 2.2 mg/dl (1.7-2.4); Phosphorus 2.2 mg/dl (2.5-4.9); Potassium 3.5 mmol/L (3.5-5.1); Sodium 134 mmol/L (136-145)
[2023-11-28 07:14] LABS: HCO3 VBG 24 mmol/L; Oxygen Saturation VBG 80.8 %; PCO2 VBG 43 mmHg (38-50); PO2 VBG 47 mmHg; pH VBG 7.35 (7.36-7.41)
[2023-11-28 07:37] LABS: Anion Gap 6 (3-11); BUN Creatinine Ratio 7.9 (10-20); Blood Urea Nitrogen 5 mg/dl (6-23); Calcium 8.1 mg/dl (8.6-10.3); Carbon Dioxide 23 mmol/L (21-32); Chloride 106 mmol/L (98-107); Creatinine Clr Calc Pharmacy 192.8 ml/min; Est GFR (African American) > 150.0 ml/min; Est GFR (Non-African American) 133.2 ml/min; Glucose 144 mg/dl (70-99(Fasting)); Magnesium 2.1 mg/dl (1.7-2.4); Phosphorus 1.9 mg/dl (2.5-4.9); Potassium 3.7 mmol/L (3.5-5.1); Sodium 135 mmol/L (136-145)
[2023-11-28] MEDS ORDERED: POTASSIUM PHOS 3 MMOL/1 ML INFUSION IV STA (08:13)
[2023-11-28] MEDS: NSS + 20MEQ KCL 20 MEQ/1,000 ML BAG IV SCH (08:58)
[2023-11-28] MEDS: POTASSIUM PHOSPHATE 21 MMOL in SODIUM CHLORIDE 0.9% 500 ML IV ONE (08:58)
[2023-11-28] MEDS: LANTUS PER UNIT CHARGE SC ONE ×2 (10:31→20:28)
--- NOTE | 2023-11-28 10:33 | Pharmacy Report ---
Pharmacy Glycemic Short Note 2 - Date of Service November 28, 2023 - Glycemic Short BSG Results (Last 24 hours): 11/27/23 11/27/23 11/27/23 10:51 12:02 12:56 Glucose POC Glucose 184 H 245 H 204 H 11/27/23 11/27/23 11/27/23 12:59 13:57 14:54 Glucose 211 H POC Glucose 199 H 196 H 11/27/23 11/27/23 11/27/23 15:59 16:55 17:19 Glucose 187 H POC Glucose 202 H 181 H 11/27/23 11/27/23 11/27/23 17:58 19:19 20:46 Glucose POC Glucose 170 H 169 H 157 H 11/27/23 11/27/23 11/28/23 22:52 22:54 00:52 Glucose 164 H POC Glucose 157 H 162 H 11/28/23 11/28/23 11/28/23 02:54 03:07 03:48 Glucose 128 H POC Glucose 129 H 136 H 11/28/23 11/28/23 11/28/23 04:53 05:48 06:56 Glucose 144 H POC Glucose 140 H 141 H 11/28/23 11/28/23 07:50 09:59 Glucose POC Glucose 156 H 116 H OUTPATIENT ANTIDIABETIC REGIMEN: * None * HbA1c 11.5% on 11/26/23 ASSESSMENT: * 28 yo M on no diabetes medications admitted 11/25 w/ pancreatitis, hypertriglyceridemia, nausea/vomiting and DKA. Unclear if T2DM or T1DM at this time. * Anion gap and CO2 closed yesterday. Initially attempted drip transition after discussion with provider. However, drip rates were high (>11 units/hr at times) and dextrose infusion continued. Lower dose Lantus utilized 2nd NPO status. * This AM, drip is running at a lower but still rapid rate >6 units/hr. However, [id number] fluids running at 200 mL/hr since yesterday AM have been discontinued. Diet is now ordered. * Will slightly increase Lantus today. Unclear what effect on BSG will be with halting IVF and would prefer not to over shoot. Additional Lantus will be ordered this evening if the drip has not discontinued. * Insulin drip transition parameters (both of the below): * Insulin drip rate less than 1 unit/hr * BSG's less than 180 mg/dL x2 consecutive checks * If insulin drip has not discontinued per the parameters above, it can be stopped at 2300 tonight PLAN FOR INPATIENT GLYCEMIC CONTROL: * Basal insulin * Lantus 30 units SQ x1 now. Additional 10-15 units tonight if insulin drip is still active. Dose dependent on insulin drip rate. * Bolus insulin (while insulin drip still running) * CHO ratio: 8 g CHO/unit * Bolus insulin (regimen after insulin drip discontinuation) * NovoLog per scale ACHS w two overnight checks * Goal Range: Low 110 mg/dL - High 140 mg/dL * Correction Factor: 25 mg/dL/unit * Nutritional / Prandial insulin per carb ratio of 1 unit per 8 grams CHO consumed
[2023-11-28 11:25] LABS: Base Excess VBG -2.3 mEq/L; HCO3 VBG 23 mmol/L; Oxygen Saturation VBG 78.9 %; PCO2 VBG 38 mmHg (38-50); PO2 VBG 47 mmHg; pH VBG 7.38 (7.36-7.41)
[2023-11-28 11:51] LABS: Anion Gap 5 (3-11); BUN Creatinine Ratio 8.9 (10-20); Blood Urea Nitrogen 5 mg/dl (6-23); Calcium 8.5 mg/dl (8.6-10.3); Carbon Dioxide 22 mmol/L (21-32); Chloride 108 mmol/L (98-107); Creatinine Clr Calc Pharmacy 216.9 ml/min; Est GFR (African American) > 150.0 ml/min; Est GFR (Non-African American) 139.8 ml/min; Glucose 107 mg/dl (70-99(Fasting)); Magnesium 2.1 mg/dl (1.7-2.4); Phosphorus 2.6 mg/dl (2.5-4.9); Potassium 3.9 mmol/L (3.5-5.1); Sodium 135 mmol/L (136-145)
[2023-11-28 13:29] LABS: Basophils # (auto) 0.06 K/uL (0.00-0.20); Basophils % (auto) 0.4 %; Eosinophils # (auto) 0.03 K/uL (0.00-0.50); Eosinophils % (auto) 0.2 %; Hematocrit (blood only) 39.6 % (42.0-52.0); Hemoglobin 13.9 g/dl (14.0-18.0); Immature Granulocytes # (auto) 0.06 K/uL (0.01-0.20); Immature Granulocytes % (auto) 0.4 %; Lymphocytes # (auto) 1.97 K/uL (1.20-3.40); Lymphocytes % (auto) 11.9 %; Mean Corpuscular Hemoglobin 30.8 pg (25.0-34.0); Mean Corpuscular Hgb Conc 35.1 g/dL (32.0-36.0); Mean Corpuscular Volume 87.6 fL (80.0-100.0); Mean Platelet Volume 9.8 fL (9.4-12.4); Monocytes # (auto) 0.87 K/uL (0.11-0.59); Monocytes % (auto) 5.2 %; Neutrophils # (auto) 13.59 K/uL (1.40-6.50); Neutrophils % (auto) 81.9 %; Platelet Count 235 K/uL (130-400); RDW Coefficient of Variation 12.7 % (11.5-14.5); RDW Standard Deviation 40.5 fL (36.4-46.3); Red Blood Count 4.52 M/uL (4.70-6.10); White Blood Count 16.58 K/ul (4.8-10.8)
--- NOTE | 2023-11-28 14:35 | Hospitalist Progress Note ---
Date of Service November 28, 2023 Assessment & Plan (1) DKA (diabetic ketoacidosis): (2) Acute pancreatitis: (3) Leukocytosis: Plan Max Kelly is a 28yo male with no significant PMH who presented to ED 11/25 with acute onset of epigastric/RUQ abdominal pain, nausea, and nonbloody emesis and was admitted with DKA and acute pancreatitis. DKA Was hyperglycemic to 257 on arrival, anion gap 18, bicarb of 19, lactate of 3.5, UA with 4+ ketones and 3+ glucose No previous diabetes dx; no medications; A1c at admission is 11.5 Given insulin and 2L n.s. in ED. AG improved to 9, BSG < 200 Transitioned from insulin drip to s.c. insulin today Continue IVF w K-supplemented 1/2 n.s. On clear liquid diet Check VBG, BMP, Mg, Phos daily Educate on diabetes management and establish plan for outpt followup Acute Pancreatitis CT abd/pelvis w con showed acute interstitial pancreatitis, moderate surrounding fat stranding and edema, no evidence of necrosis Given Protonix and Zofran in ED Triglycerides at admission 2110; repeat 886. Lipase 1917. Blood alc < 10. UDS neg. On IVF and clear liquids Pain control with IV morphine for now GI consulted; recc'd supportive care and control of blood sugar and trigs Consider fish oil supplements for Check lipid panel and CMP at outpt followup Leukocytosis WBC count 22 with left shift on admission; 16.58 today CXR showed no active dz. CT abd/pelvis showed acute interstitial pancreatitis. Hepatomegaly and hepatic steatosis were noted. No signs of infection on imaging or on UA Likely due to significant dehydration from DKA and acute pancreatitis; improving with clinical picture and other co Check CBC daily Hyponatremia Mildly decreased, 135 today likely 2/2 DKA, continue monitoring Hypophosphatemia 2.6 at admission but declined to 1.2; 2.2 this morning repleted with K brittani; repeat labs showed 2.6 Admission and Anticipated Discharge Date Admission Date: November 26, 2023 Supervising Physician Co-Signing Physician Notes Attending attestation Pt seen and examined in concert with Dr. Soares. In agreement with the documented findings as noted in the resident documentation with any exceptions or additions as noted here. Essential resolution of epigastric pain. Bowel movement today without issues. Tolerating clears. On examination, S1/S2 nl RRR no MCG. CTAB. Abd non-distended, minimal epigastric TTP. Diabetic ketoacidosis with new diagnosis of diabetes - transition to subQ insulin by protocol and advance diet as tolerated re: pancreatitis following. Trending labs as noted above. Acute pancreatitis in the setting of hypertriglyceridemia likely 2/2 DKA - IV fluids and pain control. Will need follow up for management of triglycerides, start fish oil, consider statin therapy on discharge. Else see resident documentation as noted. Subjective Pt is doing well today. States he is much improved from admission and feels ready to go home if the team also thinks he's ready. He reports no abd pain, n/v, muscle or joint pain, chest pain, SOB. He has mostly been in his hospital bed and was encouraged to sit up and walk where he feels comfortable. He understands the plan for transitioning insulin administration route, and says he doesn't feel hungry but will try liquids or something light. Review of Systems 2 Review of Systems: Per HPI. Physical Exam 2 Physical Exam: General: well-appearing, NAD, AOx3 HEENT: NCAT CV: RRR, no m/r/g Resp: CTAB GI: soft, mild epigastric tenderness, + BS Results & Data Results & Data Vital Signs (Past 12 Hours) Vital Signs Temp Pulse Pulse Resp BP Pulse Ox O2 Del Method 11/28/23 11:04 37.6 C H 93 H 18 124/82 95 Room Air 11/28/23 08:00 106 H 11/28/23 07:39 36.9 C 101 H 16 125/80 95 Room Air 11/28/23 03:34 36.6 C 116 H 20 129/88 93 Room Air 11/28/23 00:00 112 H 11/27/23 22:35 36.6 C 112 H 20 129/87 91 Room Air 11/27/23 19:58 37.1 C 118 H 16 129/86 95 Room Air 11/27/23 16:28 36.7 C 110 H 18 141/92 H 96 Room Air Intake and Output 11/28/23 11/28/23 11/28/23 06:59 14:59 22:59 Intake Total 2549.061 / 6132.951 599.862 / 599.862 Output Total 650 / 2300 1400 / 1400 Balance 1899.061 / 3832.951 -800.138 / -800.138 Intake: IV 2549.061 / 6132.951 599.862 / 599.862 D5w and 1/2Nss + 20Meq KCl 20 2000 / 5000 556.667 / 556.667 meq In 1,000 ml @ 200 mls/hr IV .Q5H [facility]CH[facility] Rx#:[id number] Insulin Regular 250 units In 42.061 / 173.451 43.195 / 43.195 Sodium Chloride 0.9% 247.5 ml @ 4.1 UNITS/HR 4.1 mls/hr IV . Q24H [facility]CHOR Rx#:[id number] Potassium Phosphate 21 mmol In 507 / 507 Sodium Chloride 0.9% 500 ml @ 88 mls/hr IV ONE ONE Rx#: [id number] Output: Urine 650 / 2300 1400 / 1400 Other: Other Intake Source NPO Weight 94.4 kg Weight Measurement Method Built in [facility] Laboratory Results 11/28/23 07:01 11/28/23 11:17 Diagnostic Findings ABDOMINAL ULTRASOUND, RIGHT UPPER QUADRANT HISTORY: Acute right upper quadrant abdominal pain r/o gallstones. COMPARISON: CT 11/26/2023 FINDINGS: Pancreas: The pancreas is mostly obscured by bowel gas. Liver: Enlarged measuring 23 cm. Hepatic steatosis without mass or marginal nodularity. Patent portal vein. Gallbladder: Trace perihepatic ascites. Intraluminal echogenic nonmobile foci within the dependent gallbladder measuring up to 6 mm. No shadowing cholelithiasis. No gallbladder wall thickening. Negative sonographic Rothman sign. CBD: 0.5 cm. Right kidney: No hydronephrosis. IMPRESSION: 1. Hepatomegaly with hepatic steatosis. 2. Trace ascites related to the acute pancreatitis. 3. Subcentimeter tumefactive sludge versus gallbladder polyps. 4. No shadowing cholelithiasis or sonographic evidence of acute cholecystitis. ACT 112: Negative or not required by law. Electronically signed by: Roddy Venegas M.D. 11/27/2023 4:18 PM Resident Activity Tracking Resident Involvement: Resident Care Provided Care Provided: Adult [facility]
[2023-11-28] MEDS: SODIUM CHLORIDE 0.9% 1,000 ML IV SCH (18:09)
[2023-11-28] MEDS: INSULIN ASPART PER UNIT CHARGE SC SCH (18:12)
[2023-11-29] MEDS: INSULIN ASPART PER UNIT CHARGE SC ONE (02:19)
[2023-11-29] MEDS ORDERED: INSULIN ASPART PER UNIT CHARGE SC ONE (04:00)
[2023-11-29 07:16] LABS: Basophils # (auto) 0.03 K/uL (0.00-0.20); Basophils % (auto) 0.3 %; Eosinophils # (auto) 0.06 K/uL (0.00-0.50); Eosinophils % (auto) 0.5 %; Hematocrit (blood only) 37.1 % (42.0-52.0); Hemoglobin 12.8 g/dl (14.0-18.0); Immature Granulocytes # (auto) 0.03 K/uL (0.01-0.20); Immature Granulocytes % (auto) 0.3 %; Lymphocytes # (auto) 2.18 K/uL (1.20-3.40); Mean Corpuscular Hemoglobin 30.5 pg (25.0-34.0); Mean Corpuscular Hgb Conc 34.5 g/dL (32.0-36.0); Mean Corpuscular Volume 88.3 fL (80.0-100.0); Mean Platelet Volume 9.4 fL (9.4-12.4); Monocytes # (auto) 0.62 K/uL (0.11-0.59); Monocytes % (auto) 5.4 %; Neutrophils # (auto) 8.53 K/uL (1.40-6.50); Neutrophils % (auto) 74.5 %; Platelet Count 201 K/uL (130-400); RDW Coefficient of Variation 12.5 % (11.5-14.5); RDW Standard Deviation 40.6 fL (36.4-46.3); White Blood Count 11.45 K/ul (4.8-10.8)
[2023-11-29] MEDS ORDERED: INSULIN ASPART PER UNIT CHARGE SC SCH (07:30)
[2023-11-29 07:42] LABS: Anion Gap 8 (3-11); BUN Creatinine Ratio 10.9 (10-20); Blood Urea Nitrogen 6 mg/dl (6-23); Calcium 8.4 mg/dl (8.6-10.3); Carbon Dioxide 21 mmol/L (21-32); Chloride 108 mmol/L (98-107); Creatinine Clr Calc Pharmacy 221.1 ml/min; Est GFR (African American) > 150.0 ml/min; Est GFR (Non-African American) 140.8 ml/min; Glucose 140 mg/dl (70-99(Fasting)); Lipase 104 U/L (11-82); Phosphorus 2.7 mg/dl (2.5-4.9); Potassium 3.7 mmol/L (3.5-5.1); Sodium 137 mmol/L (136-145); Triglycerides 169 mg/dl (0-150)
[2023-11-29] MEDS: LANTUS PER UNIT CHARGE SC ONE (10:57)
--- NOTE | 2023-11-29 11:37 | Pharmacy Report ---
Pharmacy Glycemic Short Note 2 - Date of Service November 29, 2023 - Glycemic Short BSG Results (Last 24 hours): 11/28/23 11/28/23 11/28/23 11:17 12:01 13:01 Glucose 107 H POC Glucose 141 H 220 H 11/28/23 11/28/23 11/28/23 14:03 14:55 16:04 Glucose POC Glucose 215 H 179 H 131 H 11/28/23 11/28/23 11/28/23 16:21 16:31 16:46 Glucose POC Glucose 131 H 133 H 119 H 11/28/23 11/29/23 11/29/23 20:15 02:15 06:59 Glucose 140 H POC Glucose 174 H 142 H 11/29/23 07:40 Glucose POC Glucose 144 H OUTPATIENT ANTIDIABETIC REGIMEN: * None * HbA1c 11.5% on 11/26/23 ASSESSMENT: 11/28 * Insulin drip discontinued yesterday evening. Additional Lantus 10 units was administered * Possible discharge today * AM fasting BSG wnl but Lantus is not yet at steady state and patient may be discharged today. Will slightly reduce dose this AM * No change to Novolog 11/27 * 28 yo M on no diabetes medications admitted 11/25 w/ pancreatitis, hypertriglyceridemia, nausea/vomiting and DKA. Unclear if T2DM or T1DM at this time. * Anion gap and CO2 closed yesterday. Initially attempted drip transition after discussion with provider. However, drip rates were high (>11 units/hr at times) and dextrose infusion continued. Lower dose Lantus utilized 2nd NPO status. * This AM, drip is running at a lower but still rapid rate >6 units/hr. However, [id number] fluids running at 200 mL/hr since yesterday AM have been discontinued. Diet is now ordered. * Will slightly increase Lantus today. Unclear what effect on BSG will be with halting IVF and would prefer not to over shoot. Additional Lantus will be ordered this evening if the drip has not discontinued. * Insulin drip transition parameters (both of the below): * Insulin drip rate less than 1 unit/hr * BSG's less than 180 mg/dL x2 consecutive checks * If insulin drip has not discontinued per the parameters above, it can be stopped at 2300 tonight PLAN FOR INPATIENT GLYCEMIC CONTROL: * Basal insulin * Lantus 25 units SQ x1 now * Bolus insulin * NovoLog per scale ACHS w two overnight checks * Goal Range: Low 110 mg/dL - High 140 mg/dL * Correction Factor: 25 mg/dL/unit * Nutritional / Prandial insulin per carb ratio of 1 unit per 8 grams CHO consumed
[2023-11-29 15:16] VITALS: BP 142/90; RESP 16; TEMP 99; O2SAT 95
--- NOTE | 2023-11-29 17:34 | Discharge Summary ---
Date of Service November 29, 2023 Admission HPI Per Admitting Provider Max Is a 19-year-old male with no significant past medical history who presented to [facility] ED on 11/26/2023 due to acute onset of epigastric/right upper quadrant abdominal pain, nausea, and vomiting which began this morning. On arrival to the ED he was noted to be hypertensive with systolic blood pressure in the 170s, tachycardic at 98, but otherwise stable. Labs were significant for a leukocytosis of 22 with neutrophil predominance of 20, anion gap of 18 with bicarb of 19, glucose of 257, initial lactate of 3.5, lipase of 1917, UA with specific gravity 1.041, 3+ protein, 3+ glucose, 4+ ketones, trace blood, and 3-5 hyaline casts, with full respiratory BioFire negative. CT abdomen pelvis with IV contrast was read as acute interstitial pancreatitis. Moderate fat stranding and edema around the entirety of the pancreas. No CT evidence of necrosis. Hepatomegaly and hepatic steatosis. Prior to admission the patient was given 1 g IV acetaminophen, 2 L NSS, a dose of Zosyn, 40 mg IV pantoprazole, and 4 mg IV Zofran. Patient was lying in bed at time of exam and appears to be in mild distress due to pain. He states that he had been in his normal state of health when he went to bed last night but woke up this a.m. with his abdominal pain. States that the abdominal pain is mainly been in the epigastric and right upper quadrant regions, sharp/stabbing in nature, and a 10 out of 10 at its worst. Denies any recent radiation of his pain. Has had multiple episodes of nausea and nonbloody emesis, but denies recent diarrhea or bloody bowel movements. He denies recent alcohol use, tobacco use, recreational drug use, denies previous history of diabetes, previous diagnosis of percutaneous, [id number] medications/supplements. When asked, he states that he has had a pain similar to this but much less severe 2 times in the past but they were never this bad to require ED evaluation. He is a full code Please refer to Dr. Nuñez's attestation for any changes to the treatment plan Admission Exam Per Admitting Provider General: In mild distress due to pain, stated age, ill-appearing but non-toxic HEENT: Normocephalic, atraumatic, no scleral icterus, pupils around round, symmetrical, and reactive to light, dry mucus membranes, trachea midline, no thyromegaly Chest/Pulm: No respiratory distress, symmetrical chest expansion, clear breath sounds throughout Cardiac: tachycardic rate, regular rhythm, no murmurs noted Abdomen: Negative for ascites and bruising, hypoactive bowel sounds, soft, tender to percussion in the epigastric and RUQ regions, tender to palpation in the RUQ and epigastric region without rebound tenderness Musculoskeletal: Symmetrical and without signs of acute trauma, upper and lower extremities with full ROM, no atrophy, spasticity, or flaccidity Extremities: Radial, dorsalis pedis, and posterior tibial pulses are intact and symmetrical, no edema noted in the BL LE's Skin: Warm, dry, no rashes , lesions, or scars noted Neuro: Alert and oriented to person, place, month, year, and president, no focal defects, no tremors noted Psych: No acute distress, calm and cooperative during the exam Principal Diagnosis DKA, acute pancreatitis Discharge Exam General: well-appearing, NAD, AOx3 HEENT: NCAT CV: RRR, no m/r/g Resp: CTAB GI: soft, nt/nd, + BS Discharge Data Allergies Allergy/AdvReac Type Severity Reaction Status Date / Time No Known Allergies Allergy Unverified 11/26/23 20:47 Consultations 11/26/23 20:33 ED Decision to Admit Stat 11/26/23 21:46 Consult Gastroenterology Routine Ordered Studies Abdomen/Pelvis CT 11/26/23 16:09 CT Abdomen and Pelvis With Intravenous Contrast FINDINGS: ABDOMEN: Liver: Liver measures 22 cm with diffuse steatosis. Gallbladder and bile ducts: No biliary dilatation. Normal gallbladder. No radiopaque stones. Pancreas: Acute interstitial pancreatitis. Moderate fat stranding and edema around the entirety of the pancreas. No CT evidence of necrosis. Spleen: Unremarkable. Adrenals: Unremarkable. Kidneys and ureters: Unremarkable. No obstructing stones. No hydronephrosis. Stomach and bowel: Unremarkable. PELVIS: Appendix: No findings to suggest acute appendicitis. Bladder: Unremarkable. Reproductive: Unremarkable as visualized. ABDOMEN and PELVIS: Intraperitoneal space: Unremarkable. No free air. No significant fluid collection. Bones/joints: No acute fracture. Soft tissues: Unremarkable. Vasculature: Unremarkable. Lymph nodes: Unremarkable. IMPRESSION: 1. Acute interstitial pancreatitis. Moderate fat stranding and edema around the entirety of the pancreas. No CT evidence of necrosis. 2. Hepatomegaly and hepatic steatosis. Electronically signed by: Hemal Sears MD 11/26/23 20:28 PM Chest X-Ray 11/26/23 21:14 SINGLE VIEW CHEST FINDINGS: An AP, portable, upright chest radiograph is obtained. No prior studies are available for comparison at the time of dictation. The examination is degraded by portable technique and apical lordotic positioning. The cardiomediastinal silhouette is unremarkable. There is mild bibasilar atelectasis. The lungs and pleural spaces are otherwise clear. No pneumothorax is seen. The bony thorax is grossly intact. IMPRESSION: No active disease in the chest. Electronically signed by: Jerry Ace M.D. 11/27/2023 8:26 AM Liver Ultrasound 11/27/23 14:52 ABDOMINAL ULTRASOUND, RIGHT UPPER QUADRANT FINDINGS: Pancreas: The pancreas is mostly obscured by bowel gas. Liver: Enlarged measuring 23 cm. Hepatic steatosis without mass or marginal nodularity. Patent portal vein. Gallbladder: Trace perihepatic ascites. Intraluminal echogenic nonmobile foci within the dependent gallbladder measuring up to 6 mm. No shadowing cholelithiasis. No gallbladder wall thickening. Negative sonographic Rothman sign. CBD: 0.5 cm. Right kidney: No hydronephrosis. IMPRESSION: 1. Hepatomegaly with hepatic steatosis. 2. Trace ascites related to the acute pancreatitis. 3. Subcentimeter tumefactive sludge versus gallbladder polyps. 4. No shadowing cholelithiasis or sonographic evidence of acute cholecystitis. Electronically signed by: Roddy Venegas M.D. 11/27/2023 4:18 PM Diabetes Follow up Diabetes Follow-up Needed for HgbA1c >9%,Newly Diagnosed Diabetes Hospital Course (1) DKA (diabetic ketoacidosis): (2) Acute pancreatitis: (3) Leukocytosis: Shira Kelly is a 28yo male with no significant PMH who presented to ED 11/25 with acute onset of epigastric/RUQ abdominal pain, nausea, and nonbloody emesis and was admitted with DKA and acute pancreatitis. DKA No previous diabetes dx, was on no medications Hyperglycemic to 257 on arrival, a1c was 11.5, anion gap 18, bicarb of 19, lactate of 3.5, UA with 4+ ketones and 3+ glucose Sodium mildly decreased, improved to 137 by discharge Phos intermittently decreased, w low of 1.2, repleted with K phos, 2.7 at discharge Given insulin and 2L n.s. in ED. AG improved to 9, BSG < 200 Given IVF w K-supplemented 1/2 n.s. until transitioned from insulin drip to s.c. insulin on 11/27 Tolerating normal diet at discharge Educated on diabetes management and practiced self-administering insulin injections w nursing Followup appt in clinic Friday 12/01 3pm, check for episodes of hypo- or hyperglycemia and pt's comfort level w medications Acute Pancreatitis CT abd/pelvis w con showed acute interstitial pancreatitis, moderate surrounding fat stranding and edema, no evidence of necrosis Triglycerides at admission 2111; repeat 886. Lipase 1917. Blood alc < 10. UDS neg. Given Protonix and Zofran in ED GI consulted; recc'd supportive care and control of blood sugar and triglycerides; trigs trending down, 169 at discharge Pt given IVF with IV morphine available for pain control. Transitioned from NPO to clear liquids on 11/27 to regular diet by discharge Check lipid panel and CMP at outpt followup Leukocytosis WBC count 22 with left shift on admission; trending down, 11.45 at discharge CXR showed no active dz. CT abd/pelvis showed acute interstitial pancreatitis. Hepatomegaly and hepatic steatosis were noted. No signs of infection on imaging or on UA Check CBC at outpt followup Total Time Total Time Spent Total Time Spent (In Minutes): See attending attestation. Discharge Plan Discharge Items Patient Disposition: Home - Self-Care Reason For Visit: ACUTE PANCREATITIS, DKA, LACTATE Discharge Diagnosis: Diabetic keotacidosis, acute pancreatitis Activity: Per Instructions section Non-emergency contact: Primary Care Provider Call non-emergency contact if: you have any medication questions and your symptoms worsen Follow-up/Referrals: Kamran Moore PA-C [Physician Petroleum Transport Driver] - 12/30/23 8:30 am Marivel Soares MD [Resident] - PCP,NO [Primary Care Provider] - Diet: Carb Consistent or DM2 and Low Fat Addtl Attending Provider Instructions: You were admitted for diabetic ketoacidosis and acute pancreatitis. You were treated with IV insulin, IV fluids, and supplementation of electrolytes. You were educated about diabetes and its management, and more information about DKA is included with your discharge paperwork. You also received education and practice on testing your blood sugar and administering the insulin injections. Your medication list has been reviewed and reconciled upon discharge to ensure accuracy and continuity of care. You were started on long-acting basal insulin (Lantus) as well as short-acting insulin based on blood sugar levels before meals (Humalog). NOTE: your usual pharmacy does not have all of your new prescriptions and supplies in stock. Please go to [facility] branch [facility] to [facility] your full prescriptions. This store is open until 9pm. You were assigned a primary care provider at the [facility] clinic and have a followup appointment Friday 12/01 at 3pm. Please arrive at least 15 minutes early and have your insurance information ready. Contact your PCP if your symptoms worsen or you have questions about your medications. Call 911 or go to the emergency department if you have any of the following: * Sudden, severe abdominal pain or nausea/vomiting * Severe chest pain, or chest pain that radiates to your jaw or arm * Sudden, severe shortness of breath or difficulty breathing Pending Studies at Discharge: No Stand-Alone Forms: My [facility], Smoking Cessation Medications and DC Order Prescriptions: New insulin glargine [Lantus Solostar U-100 Insulin] 100 unit/mL (3 mL) insulin pen 20 unit subcut DAILY Qty: 15 0RF insulin lispro [Humalog KwikPen Insulin] 100 unit/mL insulin pen 8 unit subcut ACHS Qty: 15 0RF (DME) OneTouch Verio test strips Strip See Rx Instructions .Route Qty: 30 0RF Rx Instructions: use before every meal and before bed (4x/day) (DME) lancets [OneTouch Delica Plus Lancet] 33 gauge misc See Rx Instructions .Route Qty: 100 0RF Rx Instructions: use before every meal and before bed (4x/day) (DME) pen needle, diabetic [Pen Needle] 32 gauge x 5/32" needle See Rx Instructions .Route Qty: 100 0RF Rx Instructions: use before every meal and before bed (4x/day) Discharge Orders: Discharge Order (Routine); Ordered 11/29/23 Ordered By: Marivel Pham/Other Patient Handouts: Pancreatitis Acute Dc, Diabetic Ketoacidosis, Diabetes- Measuring Glucose at Home Admission Data Admit Date/Time: 11/26/23 21:12 Attending Provider: Kemar London Admit Provider: Werner Nuñez Primary Care Provider: PCP,NO Other Providers: Werner Nuñez; Carlos Ching Other Interventions: Discharge Summary Assessment (RN) Last Done: 11/29/23 19:07 Supervising Physician Co-Signing Physician Notes I also saw the patient and confirmed vieira portions of the clinical history and physical examination. I agree with the impression and plan as noted in the resident documentation above. Upon our late morning exam, the patient is eating lunch. His appetite is good. He has had no nausea or vomiting with eating. He has been trained in aspects of diabetes care, including blood glucose testing and insulin administration. He feels that he will be able to manage this at home with education he has been provided. We have arranged for follow-up in our office to establish PCP care on Saturday, arrived at 2:45PM for a 3PM appointment. Case management has also placed referral for establishment with endocrinology. Resident Activity Tracking Resident Involvement: Resident Care Provided Care Provided: Adult Hospital Medicine
--- NOTE | 2023-11-29 17:54 | Gastroenterology Progress Note ---
Date of Service November 29, 2023 Assessment & Plan (1) Acute pancreatitis: Plan: Patient is a 28 year old male with first diagnosis of pancreatitis, though has had questionable episodes in the past. He has not followed with a physician regularly in the past. Likely episode was triggered by hypertriglyceridemia. He has been feeling better since admission. - recommend supportive care. - continue with IVF, pain control. he is trying ice chips for now. - He will need to get his triglycerides and blood sugars under control. Plan As above. OK from GI standpoint to discharge once cleared by medicine. IP GI Service will sign off. Admission and Anticipated Discharge Date Admission Date: November 26, 2023 Subjective Pt is doing well today. States he is much improved from admission and feels ready to go home if the team also thinks he's ready. He reports no abd pain, n/v, muscle or joint pain, chest pain, SOB. He has mostly been in his hospital bed and was encouraged to sit up and walk where he feels comfortable. He understands the plan for transitioning insulin administration route, and says he doesn't feel hungry but will try liquids or something light. He actually tolerated solid food without incident. Physical Exam Physical Exam: WD WN M NAD Respiratory: Lungs clear Cardiovascular: RRR Gastrointestinal (Abdomen): NL BS, soft, nontender Results & Data Results & Data Vital Signs (Past 12 Hours) Vital Signs Temp Pulse Pulse Resp BP Pulse Ox O2 Del Method 11/29/23 15:15 37.2 C 96 H 16 142/90 H 95 Room Air 11/29/23 13:02 106 H 11/29/23 11:51 36.8 C 90 18 132/87 96 Room Air 11/29/23 08:00 81 11/29/23 07:39 37.3 C 89 18 136/91 95 Room Air PG Care Time/CCT Total # of Minutes Spent Total Time Spent with Patient: Total time spent is greater than 50% in coordination of care (as documented) at patient's floor/unit and/or counseling patient: Coding Level of Care Code 77089 SUB INP/OBS CARE 1/25MIN Diagnoses Acute pancreatitis K85.90
[2023-11-29 19:10] VITALS: PULSE 96
--- NOTE | 2023-11-29 19:18 | Discharge Summary ---
Date of Service November 29, 2023 Admission HPI Per Admitting Provider Max Is a 19-year-old male with no significant past medical history who presented to [facility] ED on 11/26/2023 due to acute onset of epigastric/right upper quadrant abdominal pain, nausea, and vomiting which began this morning. On arrival to the ED he was noted to be hypertensive with systolic blood pressure in the 170s, tachycardic at 98, but otherwise stable. Labs were significant for a leukocytosis of 22 with neutrophil predominance of 20, anion gap of 18 with bicarb of 19, glucose of 257, initial lactate of 3.5, lipase of 1917, UA with specific gravity 1.041, 3+ protein, 3+ glucose, 4+ ketones, trace blood, and 3-5 hyaline casts, with full respiratory BioFire negative. CT abdomen pelvis with IV contrast was read as acute interstitial pancreatitis. Moderate fat stranding and edema around the entirety of the pancreas. No CT evidence of necrosis. Hepatomegaly and hepatic steatosis. Prior to admission the patient was given 1 g IV acetaminophen, 2 L NSS, a dose of Zosyn, 40 mg IV pantoprazole, and 4 mg IV Zofran. Patient was lying in bed at time of exam and appears to be in mild distress due to pain. He states that he had been in his normal state of health when he went to bed last night but woke up this a.m. with his abdominal pain. States that the abdominal pain is mainly been in the epigastric and right upper quadrant regions, sharp/stabbing in nature, and a 10 out of 10 at its worst. Denies any recent radiation of his pain. Has had multiple episodes of nausea and nonbloody emesis, but denies recent diarrhea or bloody bowel movements. He denies recent alcohol use, tobacco use, recreational drug use, denies previous history of diabetes, previous diagnosis of percutaneous, [id number] medications/supplements. When asked, he states that he has had a pain similar to this but much less severe 2 times in the past but they were never this bad to require ED evaluation. He is a full code Please refer to Dr. Nuñez's attestation for any changes to the treatment plan Discharge Exam General: well-appearing, NAD, AOx3 HEENT: NCAT CV: RRR, no m/r/g Resp: CTAB GI: soft, nt/nd, + BS Discharge Data Allergies Allergy/AdvReac Type Severity Reaction Status Date / Time No Known Allergies Allergy Unverified 11/26/23 20:47 Consultations 11/26/23 20:33 ED Decision to Admit Stat 11/26/23 21:46 Consult Gastroenterology Routine Ordered Studies 11/26/23 16:09 CT abd pelvis IV con only Stat 11/27/23 14:52 US RUQ [US liver] Routine Diabetes Follow up Diabetes Follow-up Needed for HgbA1c >9%,Newly Diagnosed Diabetes Hospital Course (1) DKA (diabetic ketoacidosis): (2) Acute pancreatitis: (3) Leukocytosis: Plan Max Kelly is a 28yo male with no significant PMH who presented to ED 11/25 with acute onset of epigastric/RUQ abdominal pain, nausea, and nonbloody emesis and was admitted with DKA and acute pancreatitis. DKA Was hyperglycemic to 257 on arrival, anion gap 18, bicarb of 19, lactate of 3.5, UA with 4+ ketones and 3+ glucose No previous diabetes dx; no medications; A1c at admission is 11.5 Given insulin and 2L n.s. in ED. AG improved to 9, BSG < 200 Transitioned from insulin drip to s.c. insulin today Continue IVF w K-supplemented 1/2 n.s. On clear liquid diet Check VBG, BMP, Mg, Phos daily Educate on diabetes management and establish plan for outpt followup Acute Pancreatitis CT abd/pelvis w con showed acute interstitial pancreatitis, moderate surrounding fat stranding and edema, no evidence of necrosis Given Protonix and Zofran in ED Triglycerides at admission 2111; repeat 886. Lipase 1917. Blood alc < 10. UDS neg. On IVF and clear liquids Pain control with IV morphine for now GI consulted; recc'd supportive care and control of blood sugar and trigs Consider fish oil supplements for Check lipid panel and CMP at outpt followup Leukocytosis WBC count 22 with left shift on admission; 16.58 today CXR showed no active dz. CT abd/pelvis showed acute interstitial pancreatitis. Hepatomegaly and hepatic steatosis were noted. No signs of infection on imaging or on UA Likely due to significant dehydration from DKA and acute pancreatitis; improving with clinical picture and other co Check CBC daily Hyponatremia Mildly decreased, 135 today likely 2/2 DKA, continue monitoring Hypophosphatemia 2.6 at admission but declined to 1.2; 2.2 this morning repleted with Nikki peter; repeat labs showed 2.6 Discharge Plan Discharge Items Patient Disposition: Home - Self-Care Reason For Visit: ACUTE PANCREATITIS, DKA, LACTATE Discharge Diagnosis: Diabetic keotacidosis, acute pancreatitis Activity: Per Instructions section Non-emergency contact: Primary Care Provider Call non-emergency contact if: you have any medication questions and your symptoms worsen Follow-up/Referrals: Kamran Moore PA-C [Physician Cannery Tender Engineer] - 12/30/23 8:30 am Marivel Soares MD [Resident] - PCP,NO [Primary Care Provider] - Diet: Carb Consistent or DM2 and Low Fat Addtl Attending Provider Instructions: You were admitted for diabetic ketoacidosis and acute pancreatitis. You were treated with IV insulin, IV fluids, and supplementation of electrolytes. You were educated about diabetes and its management, and more information about DKA is included with your discharge paperwork. You also received education and practice on testing your blood sugar and administering the insulin injections. Your medication list has been reviewed and reconciled upon discharge to ensure accuracy and continuity of care. You were started on long-acting basal insulin (Lantus) as well as short-acting insulin based on blood sugar levels before meals (Humalog). NOTE: your usual pharmacy does not have all of your new prescriptions and supplies in stock. Please go to the [facility] branch of [facility] [facility] to fill your full prescriptions. This store is open until 9pm. You were assigned a primary care provider at the [facility] and have a followup appointment Friday 12/01 at 3pm. Please arrive at least 15 minutes early and have your insurance information ready. Contact your PCP if your symptoms worsen or you have questions about your medications. Call 911 or go to the emergency department if you have any of the following: * Sudden, severe abdominal pain or nausea/vomiting * Severe chest pain, or chest pain that radiates to your jaw or arm * Sudden, severe shortness of breath or difficulty breathing Pending Studies at Discharge: No Stand-Alone Forms: My [facility], Smoking Cessation Medications and DE Order Prescriptions: New insulin glargine [Lantus Solostar U-100 Insulin] 100 unit/mL (3 mL) insulin pen 20 unit subcut DAILY Qty: 15 0RF insulin lispro [Humalog KwikPen Insulin] 100 unit/mL insulin pen 8 unit subcut ACHS Qty: 15 0RF (DME) OneTouch Verio test strips Strip See Rx Instructions .Route Qty: 30 0RF Rx Instructions: use before every meal and before bed (4x/day) (DME) lancets [OneTouch Delica Plus Lancet] 33 gauge misc See Rx Instructions .Route Qty: 100 0RF Rx Instructions: use before every meal and before bed (4x/day) (DME) pen needle, diabetic [Pen Needle] 32 gauge x 5/32" needle See Rx Instructions .Route Qty: 100 0RF Rx Instructions: use before every meal and before bed (4x/day) Discharge Orders: Discharge Order (Routine); Ordered 11/29/23 Ordered By: Marivel Pham/Other Patient Handouts: Pancreatitis Acute Dc, Diabetic Ketoacidosis, Diabetes- Measuring Glucose at Home Admission Data Admit Date/Time: 11/26/23 21:12 Attending Provider: Kemar London Admit Provider: Werner Nuñez Primary Care Provider: PCP,NO Other Providers: Werner Nuñez; Carlos Ching Other Interventions: Discharge Summary Assessment (RN) Last Done: 11/29/23 19:07
== END 2023-11-29 19:29 | disposition home or self-care (01) | DRG 637 ==
LOC: ED 15:46 → SUATTDRO 21:12 → 4W 21:12